=== PATIENT | male | born 1955 | race Caucasian/White ===

== ENCOUNTER 2019-04-05 14:22 | Inpatient (IN) | payer MEDICAID ==
[~2019-04-05] VITALS: Ht 182.9 cm; Wt 90.7 kg
--- NOTE | 2019-04-05 01:30 | NUR ---
PT AMBULATED TO THE BATHROOM TO HAVE A BM. NOTIFIED PT THAT A URINE SAMPLE IS NEEDED. PT STATES HE DOES NOT HAVE THE URGE TO URINATE AT THIS TIME Addendum: 04/06/19 at 0727 by Manuel Mota RN WRONG DATE AND TIME. NOTE OCCURRED ON 04/06 @ 0307
--- NOTE | 2019-04-05 14:28 | NUR ---
Patient ambulated to bed 11. RN evaluating patient at bedside.
[2019-04-05 14:30] VITALS: BP 122/82
--- NOTE | 2019-04-05 14:30 | NUR ---
BIB SELF. AAO X4 C/O SOB & DRY COUGH X 2 DAYS. MILD ACCESSORY MUSCLE USED. EQUAL LEVI CLEAR LUNGS UPON AUSCULTATION. DENIES NASAL CONGESTION, FEVER, N/V, DIZZINESS, PAIN. NO EDEMA NOTED. PT PLACED ON FULL SPEECH LANGUAGE PATHOLOGIST PRN. HOB UP. BED SIDE RAILS UP X1. ON LOW BED POSITION, LOCKED. ER MADE AWARE OF PT STATUS.
--- NOTE | 2019-04-05 14:33 | NUR ---
placed on monitor and o2 nc 3L
--- NOTE | 2019-04-05 14:40 | NUR ---
DR DAVISON AT BEDSIDE FOR PT EVALUATION
[2019-04-05] MEDS ORDERED: NACL 0.9% 500 ML IV SCH (14:41)
--- NOTE | 2019-04-05 14:45 | NUR ---
Marleny finch in ED - 04/05/19 at [address] DAVISON AT BEDSIDE FOR PT RE EVALUATION
--- NOTE | 2019-04-05 14:50 | NUR ---
RT AT BEDSIDE
[2019-04-05 15:10] LABS: BASOPHILS # (AUTO) 0.1 K/uL (0.00-0.22); BASOPHILS % (AUTO) 0.5 % (0.0-2.0); EOSINOPHILS # (AUTO) 0.1 K/uL (0-0.4); EOSINOPHILS % (AUTO) 1.1 % (0.0-4.0); HEMOGLOBIN 13.7 g/dL (12.0-18.0); LYMPHOCYTES # (AUTO) 2.1 K/uL (2.0-11.5); LYMPHOCYTES % (AUTO) 19.6 % (20.5-51.1); MEAN CORPUSCULAR HEMOGLOBIN 29 pg (27-31); MEAN CORPUSCULAR HGB CONC 34 g/dL (33-37); MEAN CORPUSCULAR VOLUME 87.1 fL (80-94); MONOCYTES # (AUTO) 0.8 K/uL (0.8-1.0); MONOCYTES % (AUTO) 7.1 % (1.7-9.3); NEUTROPHILS # (AUTO) 7.7 K/uL (1.8-7.7); NEUTROPHILS % (AUTO) 71.7 % (42.2-75.2); PLATELET COUNT (AUTO) 261 K/uL (140-450); RED CELL DISTRIBUTION WIDTH 14.6 % (11.6-13.7); WHITE BLOOD COUNT (AUTO) 10.8 K/uL (4.8-10.8)
[2019-04-05] MEDS ORDERED: DILTIAZEM 25 MG/5 ML VIAL IVP ONE (15:10)
[2019-04-05 15:24] LABS: ANION GAP 15.9 (8-16); CARBON DIOXIDE 22.2 mmol/L (21-32); CREATININE 1.1 mg/dL (0.7-1.3); POTASSIUM 4.1 mmol/L (3.5-5.1)
[2019-04-05 15:25] LABS: PROTHROMBIN TIME 10.5 secs (10.8-13.4)
[2019-04-05 15:29] LABS: ALBUMIN 3.1 g/dL (3.4-5.0); TOTAL BILIRUBIN 0.7 mg/dL (0.0-1.0)
--- NOTE | 2019-04-05 15:41 | NUR ---
PT ASLEEP. EASILY AROUSABLE BY NAME. FULL CLEAR SPEECH. NO SIGNS AND SYMPTOMS OF RESPIRATORY DISTRESS NOTED. VSS: 106/78, 103, 96% RA, 19. PT TOOK OF NASAL CANNULA AT THIS TIME. PT STATES HE DOESN'T WANT THE OXYGEN. WILL CONTINUE TO MONITOR.
--- NOTE | 2019-04-05 15:41 | NUR ---
Note stef in EDM - 04/05/19 at 1545 by MED PT ASLEEP. EASILY AROUSABLE BY NAME. FULL CLEAR SPEECH. NO SIGNS AND SYMPTOMS OF RESPIRATORY DISTRESS NOTED. VSS: 106/78, 103, 96%, 19
[2019-04-05] MEDS ORDERED: ENOXAPARIN 100 MG/ML SYR SUBQ ONE (16:05)
--- NOTE | 2019-04-05 16:15 | NUR ---
PT AAOX4, FULL CLEAR SPEECH. NO RESPIRATORY DISTRESS NOTED. WILL CONTINUE TO MONITOR.
[2019-04-05] MEDS ORDERED: HYDROcodone/APAP 7.5/325 MG 1 TAB PO PRN (17:10)
[2019-04-05] MEDS ORDERED: MORPHINE SULFATE 2 MG/ML SYR IVP PRN (17:10)
[2019-04-05] MEDS ORDERED: ACETAMINOPHEN 325 MG TAB PO PRN (17:10)
[2019-04-05] MEDS ORDERED: DOCUSATE SODIUM 100 MG GELCAP PO PRN (17:10)
[2019-04-05] MEDS ORDERED: ONDANSETRON 4 MG/2 ML VIAL IM/IVP PRN (17:10)
[2019-04-05] MEDS ORDERED: hePARIN / DEXT 5% PREMIX 250 ML IV SCH (17:15)
[2019-04-05] MEDS ORDERED: HEPARIN PER PHARMACY MC PRN (17:15)
[2019-04-05 17:40] VITALS: BP 129/91
--- NOTE | 2019-04-05 17:40 | NUR ---
Patient will be admitted to care of Dr Olmos. Admited to TELE. Will go to room 106 B. Belongings list completed. Report to MELO MARY.
--- NOTE | 2019-04-05 17:40 | NUR ---
PATIENT ARRIVED FROM ER VIA GURNEY. PATIENT AMBULATED ON STEADY GAIT TO BED. REPORT RECEIVED AT BEDSIDE FROM ER NURSE MAGEN FOR CONTINUITY OF CARE. PATIENT AWAKE AND ALERT. RESPIRATIONS EVEN AND UNLABORED ON 2L O2 VIA NC. VERBALIZED PLAN OF CARE WITH PATIENT, HE VERBALIZED UNDERSTANDING. MRSA SCREENING DONE. SAFETY PRECAUTIONS IN PLACE, CALL LIGHT WITHIN REACH, WILL CONTINUE TO MONITOR PATIENT.
--- NOTE | 2019-04-05 18:00 | NUR ---
CT CALLED REGARDING CONSENT FOR CT CHEST ANGIO. INFORMED PATIENT ABOUT IT TO GET CONSENT, HE REFUSED TO GIVE IT BECAUSE HE STATED "I DON'T WANT ANYTHING INJECTED INTO ME". RN VERBALIZED UNDERSTANDING. CALLED RADIOLOGY, THEY ARE AWARE, WILL INFORM DOCTORS ONCE THEY ARE DONE WITH CHANGE OF SHIFT REPORT. PATIENT STATED THAT HE WAS HUNGRY, CALLED DIETARY, LEFT MESSAGE ABOUT TRAY FOR PATIENT, WILL FOLLOW UP.
[2019-04-05 18:07] LABS: MAGNESIUM 2.1 mg/dL (1.8-2.4); PHOSPHORUS 2.6 mg/dL (2.5-4.9); THYROID STIMULATING HORMONE 0.59 uIU/mL (0.34-3.74)
--- NOTE | 2019-04-05 18:15 | NUR ---
INFORMED PATIENT ABOUT NEED FOR URINE SAMPLE, HE VERBALIZED UNDERSTANDING. PATIENT CURRENTLY SITTING UP IN BED EATING DINNER BROUGHT FROM DIETARY. NO COMPLAINTS AT THIS TIME. WILL CONTINUE TO MONITOR PATIENT.
[2019-04-05] MEDS: NACL 0.9% 1,000 ML IV SCH (18:40)
--- NOTE | 2019-04-05 18:49 | NUR ---
IVF FLUID STARTED, PATIENT FINISHED DINNER. NO CHEST PAIN AT THE MOMENT, NO COMPLAINTS. SPOKE TO DR. YAO ABOUT PATIENT'S REFUSAL OF CT CHEST ANGIOGRAM. DR. YAO STATED SHE WILL COME IN AND SPEAK TO THE PATIENT ABOUT IT. RN VERBALIZED UNDERSTANDING. WILL CONTINUE TO MONITOR PATIENT AND ENDORSE TO BARREL CHARRER RN.
--- NOTE | 2019-04-05 19:21 | NUR ---
REPORT GIVEN TO [employer] SPECIALIST RN JHOAN AT BEDSIDE FOR CONTINUITY OF CARE. DR. YAO CURRENTLY IN SPEAKING TO THE PATIENT. PATIENT IN STABLE CONDITION.
--- NOTE | 2019-04-05 19:30 | NUR ---
RECEIVED PATIENT REPORT AT BEDSIDE. PATIENT AWAKE AND ALERT. PATIENT IS TACHYPNEIC AND EXHIBITS SOB WITH EXERTION. PATIENT ON 2L O2 VIA NC. O2 SAT 98% AT THIS TIME. LUNG SOUNDS ARE CLEAR. PATIENT DENIES PAIN AT THIS TIME. PATIENT ON TELE MONITORING. BED LOWERED WITH CALL LIGHT WITHIN REACH. WILL CONTINUE TO MONITOR
[2019-04-05 20:00] VITALS: BP 132/83
[2019-04-05] MEDS: hePARIN / DEXT 5% PREMIX 250 ML IV SCH (20:33)
--- NOTE | 2019-04-05 20:33 | NUR ---
HEP DRIP STARTED PER PROTOCOL
[2019-04-05] MEDS: METOPROLOL 25 MG TAB PO SCH (20:35)
[2019-04-05] MEDS ORDERED: ALBUTEROL SULFATE/IPRATROPIU 3 ML SOL IH PRN (22:30)
[2019-04-06] VITALS: BP 125/88
[2019-04-06] MEDS: PANTOPRAZOLE 40 MG INJ VIAL IVP SCH ×2 (00:33→08:39)
[2019-04-06] MEDS ORDERED: PANTOPRAZOLE 40 MG INJ VIAL ONE (00:35)
--- NOTE | 2019-04-06 02:27 | NUR ---
PTT 46.9. NO CHANGE IN HEPARIN DRIP PER PROTOCOL. PT AWAKE IN BED WATCHING TELEVISION. NO S/S OF DISTRESS NOTED AT THIS TIME
[2019-04-06 04:00] VITALS: BP 117/95
[2019-04-06] MEDS: NACL 0.9% 1,000 ML IV SCH ×2 (05:00→13:09)
--- NOTE | 2019-04-06 07:25 | NUR ---
REPORT GIVEN AT BEDSIDE. PATIENT ENDORSED IN STABLE CONDITION. PATIENT AWAKE AND ALERT IN BED
--- NOTE | 2019-04-06 07:26 | NUR ---
RECEIVED ENDORSEMENT FROM ATTENDING PSYCHIATRIST NURSE. PT IS AAOX4, RESPIRATIONS ARE EVEN AND UNLABORED, PT REFUSED TO PUT ON NC. LEFT AC 20G INTACT, PATENT, AND INFUSING IVF. LEFT FA 22 G INTACT, PATENT, AND ON HEPARIN DRIP. PATIENT DENIES ANY PAIN AT THIS TIME. PLAN OF CARE WAS REVIEWED WITH PT. PT VERBALIZED UNDERSTANDING. SAFETY MEASURES IN PLACE, CALL LIGHT WITHIN REACH. WILL CONTINUE TO MONITOR.
--- NOTE | 2019-04-06 07:50 | NUR ---
PLACED HHN PT REMOVED, REFUSED DECREASED FIO2 TO 3L N\C
[2019-04-06 08:00] VITALS: BP 119/87
--- NOTE | 2019-04-06 08:19 | NUR ---
PATIENT HAS BEEN SCREENED AND CATEGORIZED MODERATE NUTRITION RISK. PATIENT WILL BE SEEN WITHIN 3-5 DAYS OF ADMISSION. 04/08/19[address]
[2019-04-06] MEDS: METOPROLOL 25 MG TAB PO SCH (08:38)
[2019-04-06 08:44] LABS: BASOPHILS # (AUTO) 0.1 K/uL (0.00-0.22); BASOPHILS % (AUTO) 0.7 % (0.0-2.0); EOSINOPHILS # (AUTO) 0.2 K/uL (0-0.4); EOSINOPHILS % (AUTO) 1.6 % (0.0-4.0); LYMPHOCYTES # (AUTO) 2.7 K/uL (2.0-11.5); LYMPHOCYTES % (AUTO) 25.5 % (20.5-51.1); MEAN CORPUSCULAR HEMOGLOBIN 29 pg (27-31); MEAN CORPUSCULAR HGB CONC 33 g/dL (33-37); MEAN CORPUSCULAR VOLUME 88.1 fL (80-94); MONOCYTES # (AUTO) 0.9 K/uL (0.8-1.0); MONOCYTES % (AUTO) 8.9 % (1.7-9.3); NEUTROPHILS # (AUTO) 6.6 K/uL (1.8-7.7); NEUTROPHILS % (AUTO) 63.3 % (42.2-75.2); PLATELET COUNT (AUTO) 256 K/uL (140-450); RED BLOOD CELL COUNT(AUTO) 4.77 MIL/uL (4.20-6.10); RED CELL DISTRIBUTION WIDTH 14.9 % (11.6-13.7); WHITE BLOOD COUNT (AUTO) 10.4 K/uL (4.8-10.8)
[2019-04-06 08:48] LABS: ANION GAP 14.5 (8-16); CARBON DIOXIDE 24.2 mmol/L (21-32); CREATININE 1.2 mg/dL (0.7-1.3); POTASSIUM 4.7 mmol/L (3.5-5.1)
--- NOTE | 2019-04-06 09:00 | NUR ---
REINFORCED PT EDUCATION ON URINE COLLECTION FOR UA. URINAL AT BEDSIDE. PT VERBALIZED UNDERSTANDING. REFUSES TO USE URINAL FOR URINE COLLECTION.
[2019-04-06 09:15] LABS: CHOL/HDL RATIO 3.7 (1-4.5)
[2019-04-06 09:28] LABS: MAGNESIUM 2.3 mg/dL (1.8-2.4); PHOSPHORUS 2.9 mg/dL (2.5-4.9)
--- NOTE | 2019-04-06 09:30 | NUR ---
ADMINISTERED SCHEDULED MEDICATIONS. DENIES PAIN AT THIS TIME. IV INTACT, PATENT, AND INFUSING IVF. WILL CONTINUE TO MONITOR.
--- NOTE | 2019-04-06 09:40 | NUR ---
ADMINISTERED HEPARIN BOLUS AND ADJUSTED HEPARIN DRIP RATE PER PROTOCOL. PT DENIES ANY SOB, RESPIRATIONS ARE EVEN AND UNLABORED. DENIES PAIN AT THIS TIME. WILL CONTINUE TO MONITOR.
[2019-04-06] MEDS: hePARIN / DEXT 5% PREMIX 250 ML IV SCH (10:36)
[2019-04-06 12:00] VITALS: BP 121/87
--- NOTE | 2019-04-06 12:30 | NUR ---
PT IS RESTING IN BED. NO SIGN OF DISTRESS NOTED. WILL CONTINUE TO MONITOR.
[2019-04-06] MEDS ORDERED: BENZOCAINE/MENTHOL 1 LOZ MM PRN (14:30)
--- NOTE | 2019-04-06 14:35 | NUR ---
PT STATED THAT HE DID NOT WISH TO CONTINUE TREATMENT. PT REFUSED TO SIGN AMA FORM. DR. LIU EXPLAINED THE RISKS OF GOING AMA. PT VERBALIZED UNDERSTANDING. PT ALSO REFUSED TO HAVE ID BAND REMOVED. PT WAS ESCORTED TO FRONT LOBBY.
== END 2019-04-06 14:40 | disposition left against medical advice (07) | DRG 203 ==
LOC: MED 14:22 → MTU 17:09
PROVIDERS: ADMIT General Practice; ATTEND General Practice
DX: M94.0 Chondrocostal junction syndrome [Tietze] (principal); I26.99 Other pulmonary embolism without acute cor pulmonale; E87.3 Alkalosis; E44.0 Moderate protein-calorie malnutrition; I24.9 Acute ischemic heart disease, unspecified; I48.91 Unspecified atrial fibrillation; E66.3 Overweight; Z53.21 Procedure and treatment not carried out due to patient leaving prior to being seen by health care provider; Z68.27 Body mass index [BMI] 27.0-27.9, adult; Z71.3 Dietary counseling and surveillance; Z82.49 Family history of ischemic heart disease and other diseases of the circulatory system; Z87.891 Personal history of nicotine dependence
CPT/HCPCS: 36415; 71045; 80048; 80053; 82150; 83036; 83605; 83690; 83735; 83880; 84100; 84443; 84484; 85025; 85379; 85610; 85730; 87040; 87081; 93005; 94640; 96361; 96372; 96374; 99285; C9113; J1644; J1650; J3490; J7030; J7620